=== PATIENT | female | born 1945 | race Caucasian/White ===

== ENCOUNTER 2017-11-06 10:57 | Day surgery (SDC) | payer MEDICARE, BC ==
[~2017-11-06] VITALS: Ht 160 cm; Wt 35.0 kg
--- NOTE | ~2017-11-06 | OP ---
PATIENT NAME: TIAGO VAZQUEZ MEDICAL RECORD: [id number] :47 LOCATION:[facility] ADMISSION DATE: SURGEON: GOGO SWAN DO DATE OF OPERATION: 11/06/2017 PROCEDURE: EGD with biopsies. INDICATIONS FOR PROCEDURE: Dysphagia, chest pain, abnormal weight loss. SCOPE: Olympus video gastroscope. MEDICATIONS: Propofol 100 mg IV per anesthesia. ESTIMATED BLOOD LOSS: Minimal. COMPLICATIONS: None. FINDINGS: Informed consent was given. The patient was made comfortable with the above medication. After reaching an adequate level of sedation by slow IV push, the patient was placed on her left side. The endoscope was advanced under direct visualization through the mouth to the second portion of the duodenum. The upper, middle, and lower thirds of the esophagus appeared normal without strictures, rings, or other abnormalities. At the GE junction, there was some mild evidence of LA class A reflux induced esophagitis without ulcers or erosions. The endoscope was advanced beyond the GE junction into the stomach and retroflexed to view the cardia, where a small sliding hiatal hernia was present. The fundus and proximal portions of the body of the stomach appeared normal. In the antrum and prepyloric region, there was some patchy erythema and granularity consistent with gastritis. There was a single superficial ulceration in the prepyloric region. Random biopsies were taken from the stomach to submit for histopathology and to rule out H. pylori. The endoscope was advanced beyond the pylorus into the duodenum. The entire exam and duodenum appeared normal. The endoscope was then withdrawn from the patient. The patient tolerated the procedure well and there were no complications. IMPRESSION: 1. Reflux esophagitis grade A. 2. Small sliding hiatal hernia. 3. Patchy gastritis in the antrum and prepyloric regions of the stomach. 4. Single gastric ulcer in the pre-pylorus of the stomach. PLAN AND RECOMMENDATIONS: 1. Discharge home when recovery parameters are met. 2. GERD diet and reflux precautions. 3. Continue antacid therapy, but change that from pantoprazole to omeprazole 40 mg daily in the a.m. and Zantac or an equivalent histamine paula in the p.m. to see if this helps with symptomatic control. 4. Continue current medications. 5. Barium esophagram regarding the ongoing dysphagia. 6. Right upper quadrant ultrasound regarding the epigastric pain and sternal pain with eating. 7. Further recommendations to follow results of above diagnostic studies. TRANSINT:[id number] Voice Confirmation ID: [id number] DOCUMENT ID: [id number] OPERATIVE REPORT [id number] TIAGO VAZQUEZ,GOGO Drew DO at 1135 CC: [id number] DICTATION DATE: 11/06/17 1352 SLOTTER OPERATOR: 11/06/17 1424 [facility] 11/06/17 [id number] [place] [address]
[2017-11-06] MEDS ORDERED: PROVERA2.5 MG PO (11:40)
[2017-11-06] MEDS ORDERED: LIPITOR10 MG PO (11:41)
[2017-11-06] MEDS ORDERED: SINGULAIR10 MG PO (11:42)
[2017-11-06] MEDS ORDERED: NITROSTAT0.3 MG SL (11:44)
[2017-11-06] MEDS ORDERED: CARAFATE1 G PO (11:46)
[2017-11-06] MEDS ORDERED: NEURONTIN 300300 MG PO (11:47)
[2017-11-06 11:48] VITALS: BP 129/75; Ht 160 cm; Wt 35.0 kg
[2017-11-06 12:44] LABS: HEMATOCRIT 42.7 % (36.0-48.0); MCH 30.2 pg (26.0-34.0); MCHC 32.8 g/dL (31.0-37.0); MCV 92.2 fL (80.0-100.0); MEAN PLATELET VOLUME 11.5 fL (7.4-10.4); RBC 4.63 10x6/uL (4.00-5.40); RDW 14.3 % (11.5-14.5); WBC 4.6 10x3/uL (4.8-10.8)
== END 2017-11-06 14:45 | disposition home or self-care (01) ==
LOC: D.OPS 10:57
PROVIDERS: Anesthesiology
DX: R13.10 Dysphagia, unspecified (principal); R63.4 Abnormal weight loss; R07.9 Chest pain, unspecified; K21.9 Gastro-esophageal reflux disease without esophagitis; J44.9 Chronic obstructive pulmonary disease, unspecified; Z87.891 Personal history of nicotine dependence; K21.0 Gastro-esophageal reflux disease with esophagitis; K44.9 Diaphragmatic hernia without obstruction or gangrene; K25.9 Gastric ulcer, unspecified as acute or chronic, without hemorrhage or perforation